=== PATIENT | male | born 1960 | race Caucasian/White ===

== ENCOUNTER 2017-08-08 20:39 | Emergency (ER) | payer BC ==
--- NOTE | 2017-08-08 21:38 | UC ---
FLU HPI - HPI Summary HPI Summary: fever, cough, uri, body aches for a couple of days--sent home from work due to illness - History of Current Complaint Chief Complaint: UCRespiratory Stated Complaint: FLU SYMPTOMS Time Seen by Provider: 08/08/17 21:37 Hx Obtained From: Patient Onset/Duration: Sudden Onset, Lasting Days, Still Present Severity Currently: Moderate Severity Initially: Moderate Associated Signs & Symptoms: Positive: Fever, Myalgia, Cough, Nasal Congestion, Headache Related Hx: Possible Flu/Infectious Exposure - Allergy/Home Medications Allergies/Adverse Reactions: Allergies Allergy/AdvReac Type Severity Reaction Status Date / Time No Known Allergies Allergy Verified 08/08/17 20:52 Home Medications: Home Medications [id number]-[id number] [Nyquil Severe Cold/Flu 5-6.25-10-325 mg/15Ml] 1 liq PO PRN 08/08/17 [History] PMH/Surg Hx/FS Hx/Imm Hx Previously Healthy: Yes - Surgical History Surgical History: None - Family History Known Family History: Positive: None - Social History Occupation: Employed Full-time Lives: With Family Alcohol Use: None Substance Use Type: None Smoking Status (MU): Never Smoked Tobacco Review of Systems Constitutional: Negative, Fever, Chills, Fatigue Skin: Negative Eyes: Negative ENT: Sore Throat, Nasal Discharge Respiratory: Cough Cardiovascular: Negative Gastrointestinal: Negative Genitourinary: Negative Motor: Negative Neurovascular: Negative Musculoskeletal: Arthralgia, Myalgia Neurological: Headache Psychological: Negative Is Patient Immunocompromised?: No All Other Systems Reviewed And Are Negative: Yes Physical Exam Triage Information Reviewed: Yes Appearance: Well-Nourished, Ill-Appearing, Pain Distress Vital Signs: Initial Vital Signs Temp 97.9 F 08/08/17 20:48 Pulse 77 08/08/17 20:48 Resp 16 08/08/17 20:48 BP 119/73 08/08/17 20:48 Pulse Ox 97 08/08/17 20:48 Vital Signs Reviewed: Yes Eye Exam: Normal Eyes: Positive: Conjunctiva Clear ENT Exam: Normal ENT: Positive: Normal ENT inspection, Hearing grossly normal, Pharynx normal, TMs normal. Negative: Nasal congestion, Nasal drainage, Tonsillar swelling, Tonsillar exudate, Trismus, Muffled voice, Hoarse voice, Dental tenderness, Sinus tenderness Dental Exam: Normal Neck exam: Normal Neck: Positive: Supple, Nontender Respiratory Exam: Normal Respiratory: Positive: Chest non-tender, Lungs clear, Normal breath sounds, No respiratory distress, No accessory muscle use Cardiovascular Exam: Normal Cardiovascular: Positive: RRR, No Murmur, Pulses Normal, Brisk Capillary Refill Musculoskeletal Exam: Normal Musculoskeletal: Positive: Strength Intact, ROM Intact, No Edema Neurological Exam: Normal Neurological: Positive: Alert, Muscle Tone Normal Psychological Exam: Normal Skin Exam: Normal Diagnostics - Laboratory Diagnostic Studies Completed/Ordered: Influenza B+ Flu Course/Dx - Course Course Of Treatment: Tamiflu, rest increase fluids, tylenol, ibuprofen follow with pcp prn - Differential Dx/Diagnosis Provider Diagnoses: Influenza B Discharge - Discharge Plan Condition: Stable Disposition: HOME Prescriptions: Oseltamivir CAP* [Tamiflu CAP*] 75 mg PO BID #9 cap Patient Education Materials: Influenza (ED) Forms: *Work Release Referrals: [facility] [place] PHYSICIAN REFERRAL [Outside] - 3 Days
[2017-08-08] MEDS ORDERED: Oseltamivir CAP* 75 MG PO ONE (21:56)
== END 2017-08-08 22:08 | disposition home or self-care (01) ==
LOC: UCEAST 20:39
DX: J10.1 Influenza due to other identified influenza virus with other respiratory manifestations (principal)
CPT/HCPCS: 87502; 99202; A9270-GY; G0463

== ENCOUNTER 2018-04-22 10:49 | Emergency (ER) | payer BC ==
[2018-04-22 11:33] VITALS: BP 126/81
--- NOTE | 2018-04-22 12:02 | UC ---
Throat Pain/Nasal Bigg HPI - HPI Summary HPI Summary: 58-year-old male comes to clinic today with runny nose nasal congestion drainage from his eyes cough and chest congestion for 5 more days. No wheezing reported. He has tried some unkv-cyt-kxzeopl medications without any improvement. He has chest pain with his cough otherwise no chest pain. - History of Current Complaint Chief Complaint: UCRespiratory Stated Complaint: CHEST CONGESTION Time Seen by Provider: 04/22/18 11:39 Pain Intensity: 6 - Allergies/Home Medications Allergies/Adverse Reactions: Allergies Allergy/AdvReac Type Severity Reaction Status Date / Time No Known Allergies Allergy Verified 04/22/18 11:33 Home Medications: Home Medications Aspirin/Acetaminophen/Caffeine [Excedrin Migraine Caplet] 2 tab PO Q8HR PRN 09/08 [History Confirmed 04/22/18] Guaifenesin/Dextromethorphan [Cough & Chest Congest Dm Liq] 1 dose PO ONCE PRN 04/22/18 [History Confirmed 04/22/18] PMH/Surg Hx/FS Hx/Imm Hx Previously Healthy: Yes - Surgical History Surgical History: None - Family History Known Family History: Positive: None - Social History Alcohol Use: None Substance Use Type: None Smoking Status (MU): Never Smoked Tobacco Review of Systems Constitutional: Negative Skin: Negative Eyes: Drainage, Eye Redness ENT: Sore Throat, Nasal Discharge, Sinus Congestion Respiratory: Cough Cardiovascular: Negative Gastrointestinal: Negative Motor: Negative Neurovascular: Negative Musculoskeletal: Negative Neurological: Negative Psychological: Negative Is Patient Immunocompromised?: No All Other Systems Reviewed And Are Negative: Yes Physical Exam Triage Information Reviewed: Yes Appearance: No Pain Distress, Well-Nourished, Ill-Appearing - MILD Vital Signs: Initial Vital Signs Temp 98.4 F 04/22/18 11:28 Pulse 65 04/22/18 11:28 Resp 18 04/22/18 11:28 BP 126/81 04/22/18 11:28 Pulse Ox 97 04/22/18 11:28 Vital Signs Reviewed: Yes Eyes: Positive: Conjunctiva Inflamed, Discharge ENT: Positive: Pharyngeal erythema, Nasal congestion, Nasal drainage, TMs normal Neck exam: Normal Neck: Positive: Supple, Nontender Respiratory: Positive: Lungs clear, Normal breath sounds, No respiratory distress, No accessory muscle use Cardiovascular: Positive: RRR Musculoskeletal Exam: Normal Musculoskeletal: Positive: Strength Intact, ROM Intact, No Edema Neurological Exam: Normal Neurological: Positive: Alert Psychological Exam: Normal Psychological: Positive: Normal Response To Family, Age Appropriate Behavior Skin Exam: Normal Throat Pain/Nasal Course/Dx - Course Course Of Treatment: We discussed viral and bacterial infections and the role of antibiotics. The patient prefers to be on antibiotics at this time. - Differential Dx/Diagnosis Provider Diagnoses: BRONCHITIS. CONJUNCTIVITIS Discharge - Sign-Out/Discharge Documenting (check all that apply): Patient Departure All imaging exams completed and their final reports reviewed: No Studies - Discharge Plan Condition: Stable Disposition: HOME Prescriptions: Azithromyxin BETO (NF) [Z-Beto (Zithromax) 250 mg tabs #6] 2 tab PO .TODAY, THEN 1 DAILY #6 tab Tobramycin 0.3% OPHTH.DEANDRE* 1 drop BOTH EYES Q4H #1 btl Patient Education Materials: Acute Bronchitis (ED), Conjunctivitis (ED) Forms: *Work Release Referrals: [facility] – [place] PHYSICIAN REFERRAL [Outside] Additional Instructions: FOLLOW UP WITH YOUR DOCTOR IF NOT COMPLETELY IMPROVED. GET RECHECKED FOR ANY WORSENING OF YOUR CONDITION OR QUESTIONS OR CONCERNS. - Billing Disposition and Condition Condition: STABLE Disposition: Home
== END 2018-04-22 12:04 | disposition home or self-care (01) ==
LOC: UCEAST 10:49
DX: J40 Bronchitis, not specified as acute or chronic (principal); H10.9 Unspecified conjunctivitis; Z79.82 Long term (current) use of aspirin
CPT/HCPCS: 99212; G0463

== ENCOUNTER 2018-08-21 09:40 | Emergency (ER) | payer BC ==
[2018-08-21 09:59] VITALS: BP 117/67
[2018-08-21 10:05] LABS: Influenza A Molecular NEGATIVE (Negative); Influenza B Molecular NEGATIVE (Negative)
--- NOTE | 2018-08-21 10:10 | UC ---
FLU HPI - HPI Summary HPI Summary: 58-year-old male presents with daughter reporting three-day history of subjective fever, general malaise, body aches, nasal congestion, chest congestion, sharp right sided intermittent chest pain especially with deep breath or cough, and occasional nonproductive cough. This morning he has had 3 episodes of loose stool. Denies ear pain, sore throat, palpitations, shortness of breath, abdominal pain, nausea, vomiting, dysuria, frequency, urgency, or hematuria. - History of Current Complaint Chief Complaint: UCGeneralIllness Stated Complaint: FEVER Time Seen by Provider: 08/21/18 10:07 Hx Obtained From: Patient Pain Intensity: 9 - Allergy/Home Medications Allergies/Adverse Reactions: Allergies Allergy/AdvReac Type Severity Reaction Status Date / Time No Known Allergies Allergy Verified 08/21/18 09:47 Home Medications: Home Medications Acetaminophen/Caffeine [Cvs Tension Headache Gelcap] 1 each PO ONCE 08/21/18 [ History Confirmed 08/21/18] Calcium Carbonate TAB* 1,250 mg PO ONCE 08/21/18 [History Confirmed 08/21/18] PMH/Surg Hx/FS Hx/Imm Hx Previously Healthy: Yes - Denies significant PMH - Surgical History Surgical History: None - Family History Known Family History: Positive: Non-Contributory - Social History Alcohol Use: None Substance Use Type: None Smoking Status (MU): Former Smoker Review of Systems All Other Systems Reviewed And Are Negative: Yes Constitutional: Positive: Fever, Fatigue, Other - Body aches Skin: Negative: Rash Eyes: Negative: Drainage, Eye Redness ENT: Positive: Nasal Discharge, Sinus Congestion. Negative: Sore Throat, Ear Ache, Sinus Pain/Tenderness Respiratory: Positive: Cough. Negative: Shortness Of Breath Cardiovascular: Positive: Chest Pain. Negative: Palpitations Gastrointestinal: Positive: Diarrhea. Negative: Abdominal Pain, Vomiting, Nausea Genitourinary: Negative: Dysuria, Hematuria, Frequency, Urgency Musculoskeletal: Positive: Myalgia Neurological: Positive: Negative Physical Exam - Summary Physical Exam Summary: GENERAL APPEARANCE: Well developed, well nourished, alert and cooperative, and appears to be in no acute distress. EYES: Conjunctiva clear. No drainage. Vision is grossly intact. EARS: External auditory canals and tympanic membranes clear, hearing grossly intact. NOSE: Mild nasal congestion. No nasal discharge. THROAT: Pharynx normal. No tonsilar inflammation, swelling, exudate, or lesions. NECK: Neck supple, non-tender without lymphadenopathy. CARDIAC: Normal S1 and S2. No S3, S4 or murmurs. Rhythm is regular. There is no peripheral edema, cyanosis or pallor. Extremities are warm and well perfused. Capillary refill is less than 2 seconds. LUNGS: Clear to auscultation without rales, rhonchi, wheezing or diminished breath sounds. ABDOMEN: Positive bowel sounds. Soft, nondistended, nontender. No guarding or rebound. No masses or hepatosplenomegally. MUSKULOSKELETAL: ROM intact to all extremities. No joint erythema or tenderness. Normal muscular development. Normal gait. SKIN: Skin normal color, texture and turgor with no lesions or eruptions. Triage Information Reviewed: Yes Vital Signs: Initial Vital Signs Temp 98.3 F 08/21/18 09:50 Pulse 77 08/21/18 09:50 Resp 18 08/21/18 09:50 BP 117/67 08/21/18 09:50 Pulse Ox 96 08/21/18 09:50 Vital Signs Reviewed: Yes Diagnostics - Laboratory Diagnostic Studies Completed/Ordered: Rapid flu negative. - Radiology No standard instances Radiology Interpretation Completed By: Radiologist Summary of Radiographic Findings: Patient Name: JACKELINE CUTLER Medical Record# : [id number]. Ordering Physician: Jad Evangelista NP Acct.#: [id number]. : 1960 Age: 58 Sex: M Location: [facility]. Exam Date: 08/21/18 101 ADM Status: REG ER. Order Information: CHEST PA LAT 2 VWS. Accession Number: [id number]. CPT: 06615. INDICATION: Chest pain and cough. COMPARISON: There are no relevant prior studies available for comparison. TECHNIQUE: Dual-energy PA and lateral views of the chest were obtained. FINDINGS: The heart is within normal limits in size. Mediastinal and hilar contours appear within normal limits. The lungs are underinflated and clear. No pleural effusion is seen. IMPRESSION: NO EVIDENCE FOR ACTIVE CARDIOPULMONARY DISEASE Flu Course/Dx - Course Course Of Treatment: 58-year-old male presents with daughter reporting three- day history of subjective fever, general malaise, body aches, nasal congestion, chest congestion, sharp right sided intermittent chest pain especially with deep breath or cough, and occasional nonproductive cough. This morning he has had 3 episodes of loose stool. Denies ear pain, sore throat, palpitations, shortness of breath, abdominal pain, nausea, vomiting, dysuria, frequency, urgency, or hematuria. Afebrile. Vital signs stable. Exam was unremarkable. Rapid flu was negative. Chest x-ray normal. POC UA showed trace blood otherwise normal. I suspect that he has a viral infection with some pleuritic- type chest pain therefore I'm recommending symptomatic treatment. He was given a dose of ibuprofen in the clinic to help with the pain. He is to follow-up with his primary care provider within 5 days if symptoms do not improve. Anticipatory guidance and warning symptoms were reviewed with the patient and his daughter. Verbalize understanding and agreed with plan of care. - Differential Dx/Diagnosis Differential Diagnosis/HQI/PQRI: Bronchitis, Influenza, Pneumonia, Upper Respiratory Infection Provider Diagnosis: Viral syndrome Discharge - Sign-Out/Discharge Documenting (check all that apply): Patient Departure All imaging exams completed and their final reports reviewed: Yes - Discharge Plan Condition: Stable Disposition: HOME Patient Education Materials: Viral Syndrome (ED) Forms: *Work Release Referrals: No Primary Care Phys,NOPCP [Primary Care Provider] - [facility] [place] [facility]YS[facility]IAN REFERRAL [Outside] Additional Instructions: Your history and exam are consistent with a viral infection. Viral infections do not respond to antibiotics and are limited to the treatment of symptoms. Viral infections typically run their course in 7-10 days. Drink plenty of fluids to avoid dehydration especially if you are running any fever. Take over the counter acetaminophen (Tylenol) or ibuprofen (Advil, Motrin) according to directions as needed for pain or fever. You can use an over the counter decongestant such as Sudafed for any congestion. Follow up with your primary care provider in 5 days if symptoms persist. I have given you the number for the [facility] physician referral service if you need assistance with making an appointment. Seek immediate medical attention in the emergency room if you have fever greater than 100.5 F despite taking acetaminophen or ibuprofen, have chest pain , difficulty breathing, are unable to swallow, or have any worsening of symptoms. - Billing Disposition and Condition Condition: STABLE Disposition: Home - Attestation Statements Provider Attestation: Per institutional requirements, I have reviewed the chart, however, I was not consulted specifically or made aware of this patient by the midlevel provider. I did not personally evaluate, interact with , or disposition this patient.
[2018-08-21] MEDS ORDERED: Ibuprofen TAB* 600 MG PO ONE (11:02)
== END 2018-08-21 11:15 | disposition home or self-care (01) ==
LOC: UCEAST 09:40
DX: B34.9 Viral infection, unspecified (principal); R07.89 Other chest pain; R53.81 Other malaise; M79.10 Myalgia, unspecified site; R09.81 Nasal congestion; R09.89 Other specified symptoms and signs involving the circulatory and respiratory systems; R05 Cough; Z87.891 Personal history of nicotine dependence
CPT/HCPCS: 71046; 81003; 99212; A9270-GY; G0463

== ENCOUNTER 2019-06-23 10:49 | Emergency (ER) | payer BC, OTHER ==
--- NOTE | 2019-06-23 12:44 | UC ---
Throat Pain/Nasal Bigg HPI - HPI Summary HPI Summary: Patient is a 59yo male presenting with daughter who is translating for him for c /o nasal congestion, chest congestion, body aches, and ear pressure x1 week. Patient states that his symptoms have been worsening and he believes he may have the flu. Also notes sinus tenderness, sore throat, and productive cough. Notes increased PND, chest congestion, and cough at night. Also adds that his eyes have been red and tearing for the past couple days. Denies fever and chills. Denies n/v. Denies SOB and wheezing currently. Denies h/o asthma, COPD, and CHF. Patient's daughter notes that he has a large vein on his R lower leg that has been there for months, along with R lower leg swelling for the past few years. States swelling is worse with standing all day and better with elevation. Denies pain or redness of the vein. Denies pain or redness of the leg. Denies worsening swelling than usual. States he has been seen for both within the past few months and was told "they were fine." Patient's daughter notes he had a CXR less than a year ago that was "also normal." - History of Current Complaint Chief Complaint: UCGeneralIllness Stated Complaint: CHEST CONGESTION SORE THROAT COUGH Hx Obtained From: Patient, Family/Mold Insert Changer - daughter Severity: Moderate Pain Intensity: 5 Pain Scale Used: 0-10 Numeric - Allergies/Home Medications Allergies/Adverse Reactions: Allergies Allergy/AdvReac Type Severity Reaction Status Date / Time No Known Allergies Allergy Verified 06/23/19 11:08 PMH/Surg Hx/FS Hx/Imm Hx Previously Healthy: Yes - Surgical History Surgical History: Yes Surgery Procedure, Year, and Place: leg - Family History Known Family History: Positive: None, Non-Contributory - Social History Occupation: Employed Full-time - [place] Lives: With Family Alcohol Use: None Substance Use Type: None Smoking Status (MU): Former Smoker Review of Systems All Other Systems Reviewed And Are Negative: Yes Constitutional: Positive: Negative. Negative: Fever, Chills, Fatigue Skin: Positive: Negative Eyes: Positive: Drainage - tearing x 3 days, Eye Redness - b/l. Negative: Blurred Vision, Diplopia, Photophobia ENT: Positive: Sore Throat, Ear Ache - b/l pressure, Nasal Discharge - PND, Sinus Congestion, Sinus Pain/Tenderness Respiratory: Positive: Cough - productive, Other - wheezing worse at night and in morning Cardiovascular: Positive: Negative. Negative: Palpitations, Chest Pain Gastrointestinal: Positive: Negative. Negative: Abdominal Pain, Vomiting, Nausea Neurovascular: Positive: Negative. Negative: Decreased Sensation, Decreased Pulses Musculoskeletal: Positive: Edema - R lower leg, Myalgia - body aches. Negative : Arthralgia, Calf Tenderness, Decreased ROM Neurological: Negative: Headache Physical Exam Triage Information Reviewed: Yes Appearance: Well-Appearing, No Pain Distress, Well-Nourished Vital Signs: Initial Vital Signs Temp 98.4 F 06/23/19 11:05 Pulse 64 06/23/19 11:05 Resp 16 06/23/19 11:05 BP 124/80 06/23/19 11:05 Pulse Ox 99 06/23/19 11:05 Lab Results 06/23/19 06/23/19 Range/Units 13:28 13:30 Influenza A (Rapid) Negative (Negative) Influenza B (Rapid) Negative (Negative) Group A Strep Rapid Negative (Negative) Vital Signs Reviewed: Yes Eyes: Positive: Conjunctiva Inflamed - b/l, Other: - PERRLA. EOM intact. Negative: Discharge ENT: Positive: Hearing grossly normal, Pharyngeal erythema, Nasal congestion, Nasal drainage - PND noted, TMs normal, Sinus tenderness - frontal, Uvula midline. Negative: Tonsillar swelling, Tonsillar exudate Neck exam: Normal Neck: Positive: Supple, Nontender, No Lymphadenopathy Respiratory Exam: Normal Respiratory: Positive: Lungs clear, Normal breath sounds, No respiratory distress, No accessory muscle use. Negative: Crackles, Rhonchi, Stridor, Wheezing Cardiovascular Exam: Normal Cardiovascular: Positive: RRR, Pulses Normal - strong pedal pulses b/l, Brisk Capillary Refill Musculoskeletal Exam: Normal Musculoskeletal: Positive: Strength Intact, ROM Intact, Edema @ - R lower leg non pitting edema Neurological Exam: Other - sensation grossly intact Neurological: Positive: Alert Psychological: Positive: Age Appropriate Behavior Skin Exam: Normal - no erythema or ecchymosis, Other - varicose veins noted of posterior R lower leg Throat Pain/Nasal Course/Dx - Course Course Of Treatment: Negative rapid flu and strep. Treated with doxy for sinus infection and inhaler for SOB as needed. Educated on bronchitis and to continue with symptomatic treatment. Instructed to follow up if symptoms persist or go to ED if symptoms worsen. Also instructed patient to establish with PCP an receive a checkup, as he states he does not currently have one. Patient and daughter voiced understanding and agree with the treatment plan. Patient VS normal, including O2 sat 99%. Patient is no respiratory distress. - Differential Dx/Diagnosis Provider Diagnosis: Acute bronchitis, Sinusitis Discharge ED - Sign-Out/Discharge Documenting (check all that apply): Patient Departure All imaging exams completed and their final reports reviewed: No Studies - Discharge Plan Condition: Stable Disposition: HOME Prescriptions: Albuterol HFA INHALER* [Ventolin HFA Inhaler*] 1 - 2 puff INH Q6H PRN #1 mdi PRN Reason: Sob/Wheezing DOXYcycline CAP(*) [DOXYcycline 100MG CAP(*)] 100 mg PO BID #14 cap Patient Education Materials: How to Use a Metered-Dose Inhaler (ED), Acute Bronchitis (ED), Rhinosinusitis (ED) Forms: *Work Release Referrals: [facility] [place] PHYSICIAN REFERRAL [Outside] - 1 Week Additional Instructions: Your rapid flu and strep tests were negative today. Take doxycycline as prescribed. Do not take your calcium pill within 2 hours of taking doxycycline. Use the albuterol inhaler as needed for shortness of breath and wheezing. You may use nasal saline spray or Flonase as directed for symptomatic relief. You may take ibuprofen or acetaminophen as directed for pain relief. Get plenty of rest and fluids. Follow up with the [facility] or the primary care physician referral if your symptoms do not resolve within 7 days. Return or go to the emergency room with any new or worsening symptoms. It is recommended that you follow up with the physician referral listed below to have a check-up and establish with a primary care physician. - Billing Disposition and Condition Condition: STABLE Disposition: Home
[2019-06-23 13:42] LABS: Influenza A Molecular NEGATIVE (Negative); Influenza B Molecular NEGATIVE (Negative)
[2019-06-23 14:47] VITALS: BP 152/78
== END 2019-06-23 14:30 | disposition home or self-care (01) ==
LOC: UCEAST 10:49
DX: J20.9 Acute bronchitis, unspecified (principal); J32.9 Chronic sinusitis, unspecified; J02.9 Acute pharyngitis, unspecified; M79.89 Other specified soft tissue disorders; Z87.891 Personal history of nicotine dependence
CPT/HCPCS: 87651; 99212; G0463

== ENCOUNTER 2019-07-12 14:11 | Emergency (ER) | payer OTHER ==
[2019-07-12 14:26] VITALS: BP 131/79
--- NOTE | 2019-07-12 14:34 | UC ---
FLU HPI - HPI Summary HPI Summary: cough, body aches, fatigue, dizziness sneezing, denies cp and son---reports being on antibiotics a few weeks ago and antibiotics helped for a brief period , denies fever or illness exposure - History of Current Complaint Chief Complaint: UCGeneralIllness Stated Complaint: COUGH BODYACHES SNEEZING Time Seen by Provider: 07/12/19 14:25 Hx Obtained From: Patient Onset/Duration: Gradual Onset, Lasting Weeks, Still Present Pain Intensity: 8 Pain Scale Used: 0-10 Numeric Associated Signs & Symptoms: Positive: Myalgia, Cough, Nasal Congestion - Allergy/Home Medications Allergies/Adverse Reactions: Allergies Allergy/AdvReac Type Severity Reaction Status Date / Time No Known Allergies Allergy Verified 06/23/19 11:08 Home Medications: Home Medications Phenylephrine/Acetaminophn/Cpm [Sinus Congestion-Pain Caplet] 1 tab PO DAILY [History Confirmed 07/12/19] PMH/Surg Hx/FS Hx/Imm Hx Previously Healthy: Yes - Surgical History Surgical History: Yes Surgery Procedure, Year, and Place: leg - Family History Known Family History: Positive: None, Non-Contributory - Social History Occupation: Employed Full-time Lives: With Family Alcohol Use: None Substance Use Type: None Smoking Status (MU): Former Smoker Review of Systems All Other Systems Reviewed And Are Negative: Yes Constitutional: Positive: Negative Skin: Positive: Negative Eyes: Positive: Negative ENT: Positive: Nasal Discharge, Sinus Congestion Respiratory: Positive: Shortness Of Breath, Cough Cardiovascular: Positive: Negative Gastrointestinal: Positive: Negative Genitourinary: Positive: Negative Motor: Positive: Negative Neurovascular: Positive: Negative Musculoskeletal: Positive: Arthralgia, Myalgia Neurological: Positive: Negative Psychological: Positive: Negative Is Patient Immunocompromised?: No Physical Exam Triage Information Reviewed: Yes Appearance: Well-Appearing, No Pain Distress, Well-Nourished Vital Signs: Initial Vital Signs Temp 100.6 F 07/12/19 14:24 Pulse 100 07/12/19 14:24 Resp 20 07/12/19 14:24 BP 131/79 07/12/19 14:24 Pulse Ox 98 07/12/19 14:24 Vital Signs Reviewed: Yes Eye Exam: Normal Eyes: Positive: Conjunctiva Clear ENT Exam: Normal ENT: Positive: Normal ENT inspection, Hearing grossly normal, Pharynx normal, TMs normal. Negative: Nasal congestion, Trismus, Muffled voice, Hoarse voice Dental Exam: Normal Neck exam: Normal Neck: Positive: Supple, Nontender Respiratory Exam: Normal Respiratory: Positive: Chest non-tender, Lungs clear, Normal breath sounds, No respiratory distress, No accessory muscle use Cardiovascular Exam: Normal Cardiovascular: Positive: RRR, No Murmur, Pulses Normal, Brisk Capillary Refill Musculoskeletal Exam: Normal Musculoskeletal: Positive: Strength Intact, ROM Intact, No Edema Neurological Exam: Normal Neurological: Positive: Alert, Muscle Tone Normal Psychological Exam: Normal Skin Exam: Normal Diagnostics - Radiology No standard instances Radiology Interpretation Completed By: Radiologist - no acute cardio pulmonary issues - EKG Cardiac Rate: NL Cardiac Rhythm: Sinus: Normal Ectopy: None ST Segment: Normal EKG Comparison: No Significant Change Flu Course/Dx - Course Course Of Treatment: patient wishes not to go to hospital for labs---will check labs and follow with patient in am ---patient is agreeable to go to hospital for any worsening or changes in symptoms - Differential Dx/Diagnosis Provider Diagnosis: Hyperkalemia Discharge ED - Sign-Out/Discharge Documenting (check all that apply): Patient Departure All imaging exams completed and their final reports reviewed: No Studies - Discharge Plan Condition: Stable Disposition: HOME Prescriptions: Azithromycin TAB* [Zithromax TAB (Z-BETO) 250 mg #6 tabs] 2 tab PO .TODAY, THEN 1 DAILY #1 beto Patient Education Materials: Azithromycin (By mouth), Upper Respiratory Infection (ED) Forms: *Work Release Referrals: [facility] [Outside] - 5 Days - Billing Disposition and Condition Condition: STABLE Disposition: Home
[2019-07-12 15:03] LABS: Influenza A Molecular NEGATIVE (Negative); Influenza B Molecular NEGATIVE (Negative)
[2019-07-13 11:53] LABS: ABS Eosinophils 0.1 10^3/ul (0-0.6); ABS Lymphocytes 0.9 10^3/ul (1.0-4.8); ABS Monocytes 0.5 10^3/ul (0-0.8); ABS Neutrophils 3.9 10^3/ul (1.5-7.7); Eosinophil % 1.6 %; Hematocrit 44 % (42-52); Hemoglobin 15.2 g/dL (14.0-18.0); Lymphocyte % 16.3 %; Mean Corpuscular HGB Conc 34 g/dL (31-36); Mean Corpuscular Hemoglobin 31 pg (27-31); Mean Corpuscular Volume 91 fL (80-94); Mean Platelet Volume 7.9 fL (7.4-10.4); Nucleated Red Blood Cells % 0.6; Platelet Count 218 10^3/uL (150-450); Red Blood Count 4.87 10^6 /uL (4.18-5.48); Red Cell Distribution Width 15 % (10-15); White Blood Count 5.4 10^3/uL (3.5-10.8)
[2019-07-13 12:25] LABS: Albumin 4.3 g/dL (3.2-5.2); Albumin/Globulin Ratio 1.7 (1-3); CRP High Sensitivity 4.94 mg/L (<2.00); Calcium 9.5 mg/dL (8.6-10.3); EGFR African American 86.2 (>60); EGFR Non-African American 71.3 (>60); Globulin 2.6 g/dL (2-4); Total Bilirubin 0.6 mg/dL (0.2-1.0); Total Protein 6.9 g/dL (6.4-8.9)
[2019-07-13 12:47] LABS: Potassium 6.7 mmol/L (3.5-5.0)
--- NOTE | 2019-07-13 12:53 | UC ---
- Progress Note Progress Note: CMP comes back from July 12, 2019 with an elevated potassium of 6.7. Normal range 3.5 - 5.0. AST was also elevated at 48. Normal is 13 -39. CRP was elevated at 4.94. Normal ranges less than 2. Nursing to call patient inform the results and let them know they need to go the emergency department for recheck of potassium and that if the potassium is elevated it could be fatal. Course/Dx - Diagnoses Provider Diagnoses: Hyperkalemia Discharge ED - Sign-Out/Discharge Documenting (check all that apply): Patient Departure All imaging exams completed and their final reports reviewed: No Studies - Discharge Plan Condition: Stable Disposition: HOME Prescriptions: Azithromycin TAB* [Zithromax TAB (Z-BETO) 250 mg #6 tabs] 2 tab PO .TODAY, THEN 1 DAILY #1 beto Patient Education Materials: Azithromycin (By mouth), Upper Respiratory Infection (ED) Forms: *Work Release Referrals: [facility] [Outside] - 5 Days - Billing Disposition and Condition Condition: STABLE Disposition: Home
== END 2019-07-12 16:09 | disposition home or self-care (01) ==
LOC: UCEAST 14:11
DX: E87.5 Hyperkalemia (principal); R05 Cough; M79.10 Myalgia, unspecified site; R53.83 Other fatigue; R42 Dizziness and giddiness; R09.89 Other specified symptoms and signs involving the circulatory and respiratory systems; R09.81 Nasal congestion; R06.02 Shortness of breath
CPT/HCPCS: 36415; 71046; 80053; 85025; 86141; 93005; 99212; G0463